=== PATIENT | male | born 1955 | race Caucasian/White ===

== ENCOUNTER 2017-05-16 09:31 | Emergency (ER) | payer BC ==
[2017-05-16] MEDS ORDERED: traMADol HCl 50 MG TAB ONE (10:28)
[2017-05-16] MEDS ORDERED: Ibuprofen 800 MG TAB ONE (10:28)
--- NOTE | 2017-05-16 14:55 | CT ---
CT OF THE BRAIN WITHOUT CONTRAST: Date; 05/16/[address] was performed for evaluation following trauma. FINDINGS: The ventricles are normal in size with no shift. No intracranial bleeding or extra-axial hematoma se en. There is a suggestion of a tiny old lacunar infarct at the junction of the left thalamus and pos terior limb of the internal capsule. Less likely, it could be a small Virchow space. Otherwise, the brain appears unremarkable. The skull appears intact. No fractures seen. The sphenoid sinus and mast oid air cells are clear. IMPRESSION: No acute intracranial finding. POS: HOME
--- NOTE | 2017-05-16 15:10 | RAD ---
RIGHT SHOULDER 3 VIEWS: Date: 05/16/17 No prior films were available for comparison. FINDINGS: Chronic changes are seen in the glenohumeral joint with erosion of much of the humeral head, as well as bony overgrowth in the glenoid fossa. These are obviously chronic, longstanding changes and not acute. There is no dislocation. At most, the humeral head may be subluxed anteriorly very slightly. No fractures seen. The AC joint is not widened. IMPRESSION: Chronic changes of the glenohumeral joint, but no acute findings. POS: HOME
== END 2017-05-16 10:35 | disposition home or self-care (01) ==
LOC: BURERS 09:31
DX: S00.03XA Contusion of scalp, initial encounter (principal); S40.011A Contusion of right shoulder, initial encounter; I10 Essential (primary) hypertension; Z79.82 Long term (current) use of aspirin; Z79.899 Other long term (current) drug therapy; Z86.73 Personal history of transient ischemic attack (TIA), and cerebral infarction without residual deficits; W55.22XA Struck by cow, initial encounter
CPT/HCPCS: 70450